=== PATIENT | female | born 1990 | race Caucasian/White ===

== ENCOUNTER 2017-09-17 05:10 | Inpatient (IN) | payer MEDICAID, OTHER ==
[~2017-09-17] VITALS: Ht 157.5 cm; Wt 101.6 kg
[~2017-09-17 05:10] MED LIST: CYAN1TAB13 PO; IRON PO; PREN-234 PO
[2017-09-17] MEDS ORDERED: TERBUTALINE 1 MG/ML VIAL SUBQ SCH (05:30)
[2017-09-17] MEDS ORDERED: TERBUTALINE 1 MG/ML VIAL SUBQ ONE ×2 (05:32→06:05)
[2017-09-17 06:23] LABS: APPEARANCE,URINE CLEAR (CLEAR); BILIRUBIN,URINE NEGATIVE (NEGATIVE); BLOOD, URINE NEGATIVE (NEGATIVE); COLOR,URINE YELLOW (YELLOW); LEUKOCYTE ESTERASE ,URINE 1+ (NEGATIVE); NITRITE, URINE NEGATIVE (NEGATIVE); UGLUCOSE NEGATIVE (NEGATIVE)
[2017-09-17 06:30] LABS: HEMATOCRIT 34.1 % (36-48); HEMOGLOBIN 10.8 g/dL (12.0-16.0); MEAN CORPUSCULAR HEMOGLOBIN 24 pg (27-31); MEAN CORPUSCULAR HGB CONC 32 g/dL (33-37); MEAN CORPUSCULAR VOLUME 75.1 fL (80-94); PLATELET COUNT (AUTO) 239 K/uL (140-450); RED BLOOD CELL COUNT(AUTO) 4.54 MIL/uL (4.20-5.40); RED CELL DISTRIBUTION WIDTH 17.7 % (11.6-13.7)
[2017-09-17 06:32] LABS: RBC,URINE 0-5 (RARE) /HPF (0-5); WBC,URINE 0-5 (RARE) /HPF (0-5)
[2017-09-17 06:47] LABS: EOSINOPHILS % (MANUAL) 1 % (0-4); LYMPHOCYTES % (MANUAL) 20 % (20-46); MONOCYTES % (MANUAL) 5 % (5-12)
[2017-09-17 07:17] LABS: BARBITURATE, URINE NEG. ng/ml (NEG <=200); BENZODIAZEPINE, URINE NEG. ng/mL (NEG <=200); CANNABINOID, URINE NEG. ng/mL (NEG <=50); COCAINE, URINE NEG. ng/mL (NEG <=300); OPIATE, URINE NEG. ng/mL (NEG <=2000); PHENCYCLIDINE SCREEN,URINE NEG. ng/mL (NEG <=25)
[2017-09-17] MEDS ORDERED: IBUPROFEN 800 MG TAB PO PRN (07:35)
[2017-09-17] MEDS ORDERED: TEMAZEPAM 15 MG CAP PO PRN (07:35)
[2017-09-17] MEDS ORDERED: TRIMETHOBENZAMIDE 200 MG/2 ML SYR IM PRN (07:35)
[2017-09-17] MEDS ORDERED: METHYLERGONOVINE 0.2 MG/ML AMP IM PRN (07:35)
[2017-09-17] MEDS ORDERED: MEASLES, MUMPS, AND RUBELLA 1 VIAL SQVAC PRN (07:35)
[2017-09-17 07:41] VITALS: BP 117/55
[2017-09-17 08:03] LABS: ALBUMIN 2.3 g/dL (3.4-5.0); ANION GAP 16.1 (8-16); CARBON DIOXIDE 21.4 mmol/L (21-32); CREATININE 0.7 mg/dL (0.6-1.3); POTASSIUM 3.5 mmol/L (3.5-5.1); TOTAL BILIRUBIN 0.2 mg/dL (0.0-1.0)
[2017-09-17] MEDS: LACTATED RINGERS 1,000 ML IV SCH (08:03)
[2017-09-17] MEDS ORDERED: OXYTOCIN 10 UNITS/ML VIAL ONE (08:17)
[2017-09-17] MEDS ORDERED: MIDAZOLAM 2 MG/2 ML VIAL ONE (09:02)
[2017-09-17] MEDS ORDERED: BUPIVACAINE-MPF 0.5% 30 ML VIAL INJ ONE (09:03)
[2017-09-17] MEDS ORDERED: MORPHINE PRES FREE 10 MG/10 ML AMP IV ONE (09:03)
--- NOTE | 2017-09-17 09:17 | NUR ---
PATIENT HAS BEEN SCREENED AND CATEGORIZED HIGH NUTRITION RISK. PATIENT WILL BE SEEN WITHIN 1-2 DAYS OF ADMISSION. 09/17/17 09/18/[address]
[2017-09-17] MEDS ORDERED: OXYTOCIN 20 UNITS in LACTATED RINGERS 1,000 ML IV SCH (09:36)
[2017-09-17] MEDS ORDERED: ONDANSETRON 4 MG/2 ML VIAL IVP PRN ×2 (09:40)
[2017-09-17] MEDS ORDERED: NALBUPHINE 10 MG/ML AMP IVP PRN (09:40)
[2017-09-17] MEDS ORDERED: NALOXONE 0.4 MG/ML VIAL IVP PRN ×3 (09:40)
[2017-09-17] MEDS ORDERED: diphenhydrAMINE 50 MG/ML VIAL IVP PRN ×2 (09:40)
[2017-09-17] MEDS ORDERED: HYDROmorphone 1 MG/ML AMP IVP PRN (09:40)
[2017-09-17] MEDS ORDERED: MEPERIDINE 25 MG/ML SYR IVP PRN (09:40)
[2017-09-17] MEDS ORDERED: ONDANSETRON 4 MG/2 ML VIAL ONE (09:51)
[2017-09-17] MEDS ORDERED: OXYTOCIN 20 UNITS/LR PREMIX 1,000 ML IV ONE (10:25)
[2017-09-17] MEDS: KETOROLAC 30 MG/ML VIAL IM/IVP SCH ×2 (12:00→17:25)
[2017-09-17] MEDS: OXYTOCIN 20 UNITS in LACTATED RINGERS 1,000 ML IV SCH (17:26)
[2017-09-17] MEDS: DOCUSATE SOD/SENNA 50/8.6 MG 1 TAB PO SCH (20:43)
[2017-09-18] MEDS ORDERED: OXYTOCIN 20 UNITS/LR PREMIX 1,000 ML IV ONE (00:59)
[2017-09-18] MEDS: KETOROLAC 30 MG/ML VIAL IM/IVP SCH (01:11)
[2017-09-18] MEDS: OXYTOCIN 20 UNITS in LACTATED RINGERS 1,000 ML IV SCH (01:12)
[2017-09-18] MEDS ORDERED: IBUPROFEN 800 MG TAB PO PRN (02:00)
[2017-09-18 05:51] LABS: BASOPHILS # (AUTO) 0.1 K/uL (0.00-0.22); BASOPHILS % (AUTO) 0.6 % (0.0-2.0); EOSINOPHILS # (AUTO) 0.1 K/uL (0-0.4); HEMATOCRIT 30.2 % (36-48); HEMOGLOBIN 9.8 g/dL (12.0-16.0); LYMPHOCYTES # (AUTO) 1.5 K/uL (2.5-16.5); LYMPHOCYTES % (AUTO) 14.4 % (20.5-51.1); MEAN CORPUSCULAR HEMOGLOBIN 24 pg (27-31); MEAN CORPUSCULAR HGB CONC 32 g/dL (33-37); MEAN CORPUSCULAR VOLUME 73.4 fL (80-94); MONOCYTES # (AUTO) 0.9 K/uL (0.8-1.0); MONOCYTES % (AUTO) 8.1 % (1.7-9.3); NEUTROPHILS # (AUTO) 8.1 K/uL (1.8-7.7); NEUTROPHILS % (AUTO) 75.9 % (42.2-75.2); PLATELET COUNT (AUTO) 198 K/uL (140-450); RED BLOOD CELL COUNT(AUTO) 4.11 MIL/uL (4.20-5.40); RED CELL DISTRIBUTION WIDTH 18.1 % (11.6-13.7); WHITE BLOOD COUNT (AUTO) 10.7 K/uL (4.8-10.8)
[2017-09-18] MEDS: KETOROLAC 30 MG/ML VIAL IVP PRN (08:01)
[2017-09-18] MEDS: HYDROcodone/APAP 5/325 MG 1 TAB TAB PO PRN ×3 (10:25→19:43)
--- NOTE | 2017-09-18 15:16 | NUR ---
09/18/17 RD INITIAL ASSESSMENT COMPLETED PLEASE REFER TO NUTRITION ASSESSMENT UNDER CARE ACTIVITY FOR ESTIMATED NUTRITIONAL NEEDS. 1. CONTINUE REGULAR DIET 2. PROVIDE NUTRITION EDUCATION FOR AND . 3. RD TO FOLLOW-UP 5-7 DAYS, LOW RISK SUSSY MUJICA RD
[2017-09-18] MEDS: DOCUSATE SOD/SENNA 50/8.6 MG 1 TAB PO SCH (21:20)
[2017-09-19] MEDS: oxyCODONE/APAP 5/325 MG 1 TAB TAB PO PRN ×3 (00:17→18:55)
[2017-09-19] MEDS ORDERED: NALBUPHINE 10 MG/ML AMP IVP PRN (01:35)
[2017-09-19] MEDS ORDERED: NALBUPHINE 10 MG/ML AMP ONE (02:04)
[2017-09-19] MEDS: KETOROLAC 30 MG/ML VIAL IVP PRN ×2 (08:52→21:51)
--- NOTE | 2017-09-19 12:00 | NUR ---
Assembler [employer] Notes: I met with patient and her at bedside to discuss Patient's resources to support groups, Provide her with resources to health care services in the area of [place]. I discussed with Patient her visit and discussion with Alyssa CPS Worker. 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 Patient stated that she was aware by hospital staff and did meet with CPS worker; discuss her concerns and agreed to continue involved with CPS under a family program to work on her sobriety and been able to have baby home with her participating with all programs and resources CPS will be providing for her after her discharge.
[2017-09-19] MEDS: HYDROcodone/APAP 5/325 MG 1 TAB TAB PO PRN (14:16)
[2017-09-19] MEDS: SIMETHICONE 80 MG TAB.CHEW PO PRN ×3 (14:36→23:57)
[2017-09-19] MEDS: DOCUSATE SOD/SENNA 50/8.6 MG 1 TAB PO SCH (21:24)
[2017-09-20] MEDS: KETOROLAC 30 MG/ML VIAL IVP PRN (03:12)
[2017-09-20] MEDS: HYDROcodone/APAP 5/325 MG 1 TAB TAB PO PRN ×2 (06:52→22:57)
[2017-09-20] MEDS: oxyCODONE/APAP 5/325 MG 1 TAB TAB PO PRN (16:28)
[2017-09-20] MEDS: DOCUSATE SOD/SENNA 50/8.6 MG 1 TAB PO SCH (21:26)
[2017-09-21] MEDS: oxyCODONE/APAP 5/325 MG 1 TAB TAB PO PRN (05:01)
[2017-09-21] MEDS ORDERED: SODIUM PHOSPHATE 118 ML ENEM RC PRN (07:50)
[2017-09-21] MEDS ORDERED: MENTHOL/ZINC OXIDE 113 GM TUBE TP PRN (09:50)
[2017-09-21] MEDS: DOCUSATE SOD/SENNA 50/8.6 MG 1 TAB PO SCH ×2 (10:45→21:31)
[2017-09-21] MEDS: LACTATED RINGERS 1,000 ML IV SCH ×2 (10:48→10:49)
[2017-09-21 13:15] VITALS: BP 126/70
--- NOTE | 2017-09-21 13:15 | NUR ---
RECEIVED PATIENT ON UNIT VIA WHEELCHAIR, PT IS AAOX4, AMBULATES WITH ASSIST, NO S/S OF RESPIRATORY DISTRESS OR DISCOMFORT NOTED, PT HAS NO IV ACCESS, PT IS S/P ON 09/17/17, PT HAS CHRISS AND ABDOMINAL BINDER, DISCUSSED PLAN OF CARE WITH PT, PT VERBALIZED UNDERSTANDING, SAFETY/FALL PRECAUTIONS ARE IN PLACE, CALL LIGHT WITHIN REACH, WILL CONTINUE TO MONITOR.
[2017-09-21] MEDS: HYDROcodone/APAP 5/325 MG 1 TAB TAB PO PRN ×2 (13:33→19:40)
--- NOTE | 2017-09-21 14:36 | NUR ---
SPOKE TO DR. FRANCISCO OVER THE PHONE, PER DR. FRANCISCO PT CAN BE DISCHARGED IF THE ANESTHESIOLOGIST, DR. FLORES IS OKAY WITH THE PATIENT TO GO HOME. ALSO SPOKE TO JOANNA IN , PER JOANNA FLORES WILL COME IN TO SEE THE PATIENT TOMORROW, DR. FLORES WANTS PATIENT TO BE EVALUATED BY PHYSICAL THERAPY AND HAVE CASE MANAGEMENT SET UP OUTPATIENT PHYSICAL THERAPY.
[2017-09-21 16:00] VITALS: BP 130/71
--- NOTE | 2017-09-21 16:10 | NUR ---
PROVIDED PATIENT A MANUAL BREAST PUMP AND ICE PACKS, ALL NEEDS ARE MET AT THIS TIME, NO S/S OF RESPIRATORY DISTRESS OR DISCOMFORT NOTED, CALL LIGHT IS WITHIN REACH.
--- NOTE | 2017-09-21 19:17 | NUR ---
ENDORSED PT TO CONTRACT ACCOUNTANT NURSE FOR CONTINUITY OF CARE, PT STABLE AT THIS TIME.
--- NOTE | 2017-09-21 19:30 | NUR ---
RECEIVED FROM AM RN IN BED SITTING UP AWAKE AND ALERT. NO SOB. NO COMPLAINTS OF PAIN AT THIS TIME. ENCOURAGED TO WALK . "I DO WALK NOW FROM THIS BED AND IN RESTROOM" MALE VISITOR IN HERE VISITING. CALL LIGHT WITH IN REACH AND CARE PLANS FOR THE NIGHT DISCUSSED WITH THEM. ABDOMINAL BINDER IN PLACE. AFEBRILE.
[2017-09-21 19:34] VITALS: BP 132/72
--- NOTE | 2017-09-21 19:57 | NUR ---
PT. REQUESTED FOR PAIN RELIEVER RT POST C/S 09/19/17. MY INCISION IS TROBBING." MEDICATED REQUESTED AND ORDERED. ENCOURAGED TO CONTINUE WALKING SO SHE CAN HAVE BM . PER PT. SHE ALREADY HAD GAS/FARTED MANY TIMES."
--- NOTE | 2017-09-21 23:36 | NUR ---
PT. WOKE UP AND SEEN AMBULATING HALLWAY WITH BOYFRIEND ASSISTING HER. NOTED PT. ROM X 4. WALKING WELL WITH ASSIST.
[2017-09-21 23:47] VITALS: BP 118/60
[2017-09-22] MEDS: HYDROcodone/APAP 5/325 MG 1 TAB TAB PO PRN (04:31)
[2017-09-22 04:33] VITALS: BP 135/85
--- NOTE | 2017-09-22 05:39 | NUR ---
PT. AMBULATING FROM BED TO RESTROOM. AMBULATED DOWN THE HALLWAY LAST NIGHT. MEDICATED WITH NORCO 2 X THIS SHIFT. ABLE TO VERBALIZE NEEDS WELL.
--- NOTE | 2017-09-22 07:20 | NUR ---
ASSUMED CONTINUITY OF CARE. NO SIGNS AND SYMPTOMS OF ACUTE DISTRESS NOTED. INITIAL ASSESSMENT DONE. NO IV ACCESS AND REFUSED IV INSERTION. KEEP COMFORTABLE ON BED. EXPLAINED DIAGNOSIS, PLAN OF CARE, PAIN MANAGEMENT TEACHING, INCISION CARE, USE OF CALL LIGHT/BED/TV/BATHROOM. VERBALIZED UNDERSTANDING. CALL LIGHT WITHIN REACH.
--- NOTE | 2017-09-22 07:28 | NUR ---
ENDORSED TO THE NEXT NURSE FOR CONTINUITY OF CARE. SLEEPING AT THIS TIME.
[2017-09-22 08:00] VITALS: BP 129/72
--- NOTE | 2017-09-22 08:00 | NUR ---
Patient's Plan of Care was discussed and reviewed with DINKEY DISPATCHER: JOSE
--- NOTE | 2017-09-22 08:30 | NUR ---
PHYSICAL THERAPIST CAME FOR PT. EVAL AND TREATMENT.
[2017-09-22 12:01] VITALS: BP 121/85
--- NOTE | 2017-09-22 12:13 | NUR ---
KANG MONTELONGO CAME AND SPOKE TO PT. AT BEDSIDE. PER KANG MONTELONGO PT. CAN BE D/C HOME. INFORMED CHARGE NURSE JAM PAGAN.
--- NOTE | 2017-09-22 12:26 | NUR ---
CALLED [facility] AND INFORMED THAT PER KANG MONTELONGO PT. OK TO D/C HOME. GOT T.O. FROM [facility] OF D/C HOME AND FOLLOW UP IN I WEEK, READ BACK AND VERIFIED. INFORMED CHARGE NURSE JAM PAGAN.
[2017-09-22] MEDS ORDERED: IBUP-1842 PO (12:31)
--- NOTE | 2017-09-22 13:30 | NUR ---
EXPLAINED TO PT. ABOUT MD D/C ORDER, MD D/C PRESCRIPTION LIST EDUCATION, MD FOLLOW -UP, D/C INSTRUCTIONS AND TEACHING, INCISION CARE, PAIN MANAGEMENT TEACHING, DISEASE MANAGEMENT TEACHING. VERBALIZED UNDERSTANDING.
--- NOTE | 2017-09-22 15:00 | NUR ---
CHARGE NURSE JAM PAGAN REPORTED THAT PT. D/C HOME VIA WHEELCHAIR IN STABLE CONDITION.
--- NOTE | 2017-09-22 15:23 | NUR ---
FAXED INITIAL REVIEW TO [facility] [phone] PHONE [phone] CLAUDINE
== END 2017-09-22 15:00 | disposition home or self-care (01) | DRG 540 ==
LOC: MLD 05:10 → MFCC 08:40 → MTU 09-21 10:36
PROVIDERS: ADMIT Obstetrics & Gynecology; ATTEND Obstetrics & Gynecology
PROC: 10D00Z1 Extraction of Products of Conception, Low, Open Approach (ICD-10-PCS; principal; 2017-09-17 09:15)
PROC: 3E0234Z Introduction of Serum, Toxoid and Vaccine into Muscle, Percutaneous Approach (ICD-10-PCS; 2017-09-21)
DX: O34.219 Maternal care for unspecified type scar from previous cesarean delivery (principal); O99.354 Diseases of the nervous system complicating childbirth; Z68.41 Body mass index [BMI] 40.0-44.9, adult; O77.0 Labor and delivery complicated by meconium in amniotic fluid; Z37.0 Single live birth; Z87.891 Personal history of nicotine dependence; O99.214 Obesity complicating childbirth; E66.9 Obesity, unspecified; F15.10 Other stimulant abuse, uncomplicated; Z3A.37 37 weeks gestation of pregnancy; O75.89 Other specified complications of labor and delivery; G54.1 Lumbosacral plexus disorders; Z23 Encounter for immunization
CPT/HCPCS: 36415; 72131; 76805; 80053; 80305; 81001; 85025; 86592; 86706; 86762; 86886; 86900; 86901; 87086; 87340; 90715; 97110; 97116; 97140; 97530; 97535; J0690; J1200; J1885; J2250; J2270; J2300; J2405; J2590; J3105; J3490; J7060; J7120; Q0092

== ENCOUNTER 2021-08-14 04:00 | Emergency (ER) | payer MEDICAID ==
[~2021-08-14] VITALS: Ht 157.5 cm; Wt 97.5 kg
[2021-08-14 04:00] VITALS: BP 123/76
[~2021-08-14 04:00] MED LIST changes: -CYAN1TAB13 PO; +IBUP-1842 PO; -IRON PO; -PREN-234 PO
--- NOTE | 2021-08-14 04:00 | NUR ---
30 YO/F BIBA FROM HOME W C/O SWELLING BEGINNIG YESTERDAY MORNING TO TONGUE, CHIN, R CHEECK TO BACK OF NECK, + PAIN TO BACK OF NECK/LOWER BACK OF HEAD 10/ PRESSURE/BURNING CONSTANT. PT DENIES FEVER, CHILLS, N/V/D, SOB, OR DIFF SWALLOWING. PT LAYING IN BED LOCKED IN LOWEST POSITION W X1 SIDERAIL UP. BREATHING EVEN AND UNLABORED. WILL CONTINUE TO MONITOR. PMH: DENIES ALLERGIES: DENIES
--- NOTE | 2021-08-14 04:04 | NUR ---
BIBA TAKEN TO BED #11
[2021-08-14] MEDS ORDERED: MORPHINE SULFATE 4 MG/ML SYR IVP ONE ×2 (04:15→06:10)
[2021-08-14] MEDS ORDERED: CLINDAMYCIN 600 MG in DEXTROSE 5% 50 ML IV ONE (04:15)
[2021-08-14] MEDS ORDERED: ONDANSETRON 4 MG ODT PO ONE (04:15)
[2021-08-14] MEDS ORDERED: CHLO473S62 PO (04:16)
[2021-08-14] MEDS ORDERED: AMOX1TAB8 PO (04:16)
[2021-08-14] MEDS ORDERED: CLINDAMYCIN 600 MG/4 ML VIAL ONE (04:22)
--- NOTE | 2021-08-14 05:12 | NUR ---
PT TO CT VIA WHEELCHAIR.
--- NOTE | 2021-08-14 05:39 | NUR ---
PT REPORTS PAIN MILDY IMPROVING.
--- NOTE | 2021-08-14 05:42 | NUR ---
Dr. Glover examining patient.
[2021-08-14] MEDS ORDERED: NACL 0.9% 1,000 ML IV ONE (06:15)
--- NOTE | 2021-08-14 06:15 | NUR ---
PER ERMD PT OK FOR DISCHARGE ONCE 1L NS BOLUS HAD FINISHED.
--- NOTE | 2021-08-14 07:18 | NUR ---
Pt report given to VIK SHETH. Transfer of care at this time.
[2021-08-14 07:37] VITALS: BP 120/77
--- NOTE | 2021-08-14 07:37 | NUR ---
Patient discharged with v/s stable. Written and verbal after care instructions given and explained. Patient alert, oriented and verbalized understanding of instructions. Ambulatory with steady gait. All questions addressed prior to discharge. ID band removed. Patient advised to follow up with PMD. Rx of AMOX-CLAV, PERIDEX given. Patient educated on indication of medication including possible reaction and side effects. Opportunity to ask questions provided and answered.
== END 2021-08-14 07:37 | disposition home or self-care (01) ==
LOC: MED 04:00
DX: K02.9 Dental caries, unspecified (principal); K04.7 Periapical abscess without sinus; I10 Essential (primary) hypertension; F17.200 Nicotine dependence, unspecified, uncomplicated; Z98.890 Other specified postprocedural states; Z79.2 Long term (current) use of antibiotics; Z79.899 Other long term (current) drug therapy; Z79.1 Long term (current) use of non-steroidal anti-inflammatories (NSAID)
CPT/HCPCS: 41800; 70487; 81025; 96361; 96365; 96375; 96376; 99285; J2270; J3490; Q0162; Q9967